=== PATIENT | female | born 1960 | race Two or more races ===

== ENCOUNTER 2022-08-16 15:49 | Emergency (ER) | payer MEDICARE, OTHER ==
--- NOTE | 2022-08-16 16:30 | NUR ---
BIBS FOR RIGHT INDEX FINGER LACERATION. A/O X 3, ROOM AIR
[2022-08-16] MEDS ORDERED: TDAP [DIPH/PERTUSSIS/TET] 0.5 ML VIAL IM ONE ×2 (17:15→17:30)
[2022-08-16] MEDS ORDERED: ACETAMINOPHEN ES 500 MG TABLET ONE (17:15)
--- NOTE | 2022-08-16 17:21 | NUR ---
Patient discharged to home in stable condition. Written and verbal after care instructions given. Patient verbalizes understanding of instruction.
[2022-08-16] MEDS ORDERED: ACETAMINOPHEN ES 500 MG TABLET PO ONE (17:30)
[2022-08-16 18:04] VITALS: BP 128/64
== END 2022-08-16 18:04 | disposition home or self-care (01) ==
LOC: ER 15:52
DX: S61.212A Laceration without foreign body of right middle finger without damage to nail, initial encounter (principal); S61.214A Laceration without foreign body of right ring finger without damage to nail, initial encounter; W45.8XXA Other foreign body or object entering through skin, initial encounter; Y93.89 Activity, other specified; Y92.89 Other specified places as the place of occurrence of the external cause; Y99.8 Other external cause status
CPT/HCPCS: 99283; 90471; 90715; A4649